=== PATIENT | male | born 1955 | race Caucasian/White ===

== ENCOUNTER 2022-09-10 10:37 | Outpatient (CLI) | payer MEDICARE, SELFPAY | END 2022-09-10 10:38 | disposition home or self-care (01) | PROVIDERS: Visit Provider Family Medicine | DX: Z00.00 Encounter for general adult medical examination without abnormal findings (principal); I10 Essential (primary) hypertension; E78.5 Hyperlipidemia, unspecified; Z11.59 Encounter for screening for other viral diseases; Z12.5 Encounter for screening for malignant neoplasm of prostate | CPT/HCPCS: 80053; 80061; 84153; 86803 ==

== ENCOUNTER 2022-09-26 13:42 | Outpatient (CLI) | payer MEDICARE, SELFPAY | END 2022-09-26 13:43 | disposition home or self-care (01) | LOC: RAD 13:45 | PROVIDERS: PCP Family Medicine; Visit Provider Internal Medicine Cardiovascular Disease | DX: R94.31 Abnormal electrocardiogram [ECG] [EKG] (principal); I34.0 Nonrheumatic mitral (valve) insufficiency | CPT/HCPCS: 93306 ==

== ENCOUNTER 2023-12-12 07:58 | Outpatient (CLI) | payer MEDICARE, SELFPAY | END 2023-12-12 07:59 | disposition home or self-care (01) | LOC: NFLDREF 12-15 03:55 | PROVIDERS: PCP Family Medicine; Referring Provider Family Medicine; Visit Provider Family Medicine | DX: E78.5 Hyperlipidemia, unspecified (principal); I10 Essential (primary) hypertension; Z12.5 Encounter for screening for malignant neoplasm of prostate | CPT/HCPCS: 80053; 80061; G0103 ==

== ENCOUNTER 2023-12-26 10:42 | Outpatient (RCR) | payer MEDICARE, SELFPAY ==
--- NOTE | 2023-12-26 12:45 | PT.OPE ---
[facility] Eval Start: 12/25/23 16:26 Freq: Status: Active Protocol: Document 12/26/23 10:49 LSL (Rec: 12/26/23 12:36 LSL [id number]) E-signed By Kathy Bear PT Physical Therapy Outpatient Evaluation Insurance Information Recert Due Date 03/25/24 Insurance Name Medicare B,Blue Cross/[employer] Medical Diagnosis lateral hip pain, L knee OA Treating Diagnosis impaired ROM, weakness, pain Referring MD Wright Subjective Subjective Pt. reports he went into urgent care 2-3 months ago and he was having pain in his R leg in the upper medial calf and it hurt when he was kneeling and saw ortho and it mellowed out in November. He and his do a lot of walking and began more in springtime and he began having L hip pain and additionally he has L knee OA. After seeing doctor for annual physical and he recommended PT. The pain occurs when I am walking and lasts for a bit but calms down when I sit. I feel it when I golf a lot. His daughter and have both noticed that he limps when he is mowing the lawn. Stiff all over after sitting for a bit. Some difficulty getting up and down for gardening. Winter workout consists of an elliptical. PMH: R LCL and PCL repair about 40 y/a, R PLM 20-25 y/a Pain Comments 0/10 best, 8/10 worst Date of Last Physician Visit 12/20/23 Current Work Status Retired Precautions Weight Bearing Status Full Weight Bearing Objective Range of Motion AROM lumbar flexion 75%, extension 20%, B LF 90% Knee R 0/12/129 L 0/1/140 Strength B LE 5/5, B TFL 4+/5, L hip abduction unable to complete without wanting to compensate 4-/5, R 4+/5, L hip extension 4/5, R 5/5 Trunk - upper abdominals 3-/5, extensors 5/5 Swelling None Palpation point tenderness over R pes anserine bursa, L TFL Balance & Gait SLB R 10 sec, L 13 sec Posture L hemipelvis elevated Assessment Assessment/Impression Pt. is a 68 y/o male who presents with L knee pain with a past diagnosis and imaging of L knee OA, and L glut weakness all of which are contributing to some ITB pain and possibly glut med tendinitis. Additionally he has some point tenderness about the R pes anserine bursa that appears to be residual from an issue earlier this year that has mostly resolved. He will benefit from PT to establish a HEP that focuses on strength and flexibility of his hips and knees. Additionally some manual therapy to decrease muscle tension about if L hip may be incorporated. Primary Functional Limitations walking, stairs Plan of Care Rehabilitation Potential Excellent Physical Therapy Goals SHORT TERM GOALS: (3 weeks) 1. Pt. will be independent in HEP. 2. Pt. will demonstrate an increase in knee extension by 5+ degrees. 3. Pt. will demonstrate an increase in knee flexion by 5+ degrees. SENIOR MOBILE APPLICATION DEVELOPER GOALS: (4+ weeks) 1. 5/5 strength throughout B LE. 2. Pt. able to walk for 4 miles with pain less than 2/10 . Coordination/Communication With Referral Source Treatment Plan/Direct Interventions Ice/Cold/Vasopneumatic,Joint Mobilization,Manual Therapy, Neuromuscular Re-ed,Self-Care/ Home Management,Therapeutic Exercises Frequency/Duration 1x/week 3-6 weeks Patient Will Be Discharged From Therapy Completion of LTG(s),Skills Plateau,Independent w/HEP, Independently Progressing Evaluation Billing Untimed Code Treatment Minutes 35 Complexity Low Certification Information Initial Certification Date 12/26/23 Ending Certification Date 03/25/24 Provider Signature Required Yes Provider Signature Shows Agreement With POC & Medical Necessity Physician NPI Number Write NPI# Here Physician Comment/Change : Physician Signature & Date Requested Please Sign/Date Here
== END 2024-03-10 15:27 | disposition home or self-care (01) ==
PROVIDERS: PCP Family Medicine; Visit Provider Family Medicine
DX: M25.559 Pain in unspecified hip (principal); M17.12 Unilateral primary osteoarthritis, left knee; R53.1 Weakness; Z51.89 Encounter for other specified aftercare
CPT/HCPCS: 97110; 97161

== ENCOUNTER 2025-03-02 08:29 | Outpatient (CLI) | payer MEDICARE, SELFPAY | END 2025-03-02 08:30 | disposition home or self-care (01) | PROVIDERS: PCP Family Medicine; Visit Provider Family Medicine | DX: I10 Essential (primary) hypertension (principal); E78.5 Hyperlipidemia, unspecified; Z12.5 Encounter for screening for malignant neoplasm of prostate | CPT/HCPCS: 80053; 80061; G0103 ==

== ENCOUNTER 2025-03-02 11:48 | Outpatient (CLI) | payer MEDICARE, SELFPAY ==
[2025-03-02 12:12] VITALS: BP 111/71; PULSE 62; RESP 16; TEMP 36.9; O2SAT 96
--- NOTE | 2025-03-02 13:20 | P.PCN_ITS ---
Procedure Note Time Seen by Provider: 12:30 Date Seen: 03/02/25 Provider Contact Time: 13:25 Date of procedure: 03/02/25 Will [facility] bill your pro fee for this procedure?: Yes Procedure: CRYONEUROLYSIS TREATMENT REPORT REFERRING PROVIDER: Rajendra Dunlap TREATMENT PROVIDER: Carlos Menard PREOPERATIVE DIAGNOSIS: Left knee osteoarthritis POSTOPERATIVE DIAGNOSIS: Left knee osteoarthritis? PROCEDURE: Cryoneurolysis of Multiple Sensory Nerves of the Knee ANESTHESIA: Local INDICATIONS: The patient is a very pleasant 69-year-old male patient with primary osteoarthritis involving the left knee who presents today for cryoneurolysis of multiple sensory nerves to the knee for severe knee pain.?Patient medical history was reviewed. The risks, benefits, treatment alternatives, and complications were discussed with the patient, including but not limited to bleeding, infection, nerve or tissue damage.?Informed consent was obtained. ? PRE-TREATMENT MOTOR ASSESSMENT/PAIN SCORE: Patient was able to demonstrate intact gross motor function with plantarflexion, dorsiflexion, adduction, abduction, hip flexion, and extension of the lower extremity.?Pre-treatment pain score of 4 out of 10 in the left knee. DESCRIPTION OF PROCEDURE: After obtaining informed consent, the patient was brought back to the treatment room and positioned supine on the table.?The left lower extremity was prepped with Chlorhexadine.?We began the procedure by performing our procedural pause.?Once this was completed and verified to be accurate, I began the procedure by identifying the nerves with the use of bedside ultrasound.?After the nerves were identified, the skin was marked and, using 1% lidocaine plain, the area of the nerves were anesthetized. ? After the anesthetic was administered, the Smart Tip 2190 cryoneurolysis needle was inserted into the treatment sites using ultrasound guidance.?Treatment was then initiated on the left lower extremity with the following nerves treated: Superior, superior medial, superior lateral, inferior medial genicular nerves. At the termination of the treatment, the cryoneurolysis needle was removed with the patient's skin cleansed and Band-Aids an Idris wrap applied. Patient tolerated the procedure without any incident or concern.? Patient was then instructed to stand, mobilize the joint, and was examined to ensure gross motor skills were intact. COMPLICATIONS: None POST-TREATMENT PAIN SCORE: 0 out of 10. Left knee DISPOSITION: Discharge instructions were given to the patient with education on the post-procedure expectations. Patient was instructed to call the Ortho clinic with any post-procedure concerns or questions.
[2025-03-02 13:28] VITALS: BP 127/80; PULSE 56; RESP 16; O2SAT 96
== END 2025-03-02 13:27 | disposition home or self-care (01) ==
LOC: OP CLINIC 11:48
PROVIDERS: PCP Family Medicine; Visit Provider Nurse Anesthetist, Certified Registered
DX: M17.12 Unilateral primary osteoarthritis, left knee (principal); I10 Essential (primary) hypertension; E78.5 Hyperlipidemia, unspecified; Z12.5 Encounter for screening for malignant neoplasm of prostate
CPT/HCPCS: 64640; 76942; 80053; 80061; C9809; G0103; J2003

== ENCOUNTER 2025-03-12 06:01 | Day surgery (SDC) | payer MEDICARE, SELFPAY ==
[2025-03-12] VITALS (18 sets, daily range): BP systolic 91–111; BP diastolic 53–73; PULSE 53–88; RESP 12–16; TEMP 36.2–37.3; O2SAT 90–97; BMI 30.1
[2025-03-12] MEDS: SODIUM CHLORIDE 0.9 % (FLUSH) 10 ML SYRINGE IVF (06:45)
[2025-03-12] MEDS: LACTATED RINGERS 1000 ML 1,000 ML 100 ML IV ×3 (06:45→11:15)
--- NOTE | 2025-03-12 07:00 | W.PM.H&PU ---
History & Physical Update History & Physical Update H&P Reviewed and patient assessed: No changes noted
[2025-03-12] MEDS: OXYCODONE (CR) 10 MG TAB.ER.12H PO (07:05)
[2025-03-12] MEDS: ACETAMINOPHEN 500 MG TABLET 1000 MG PO (07:05)
[2025-03-12] MEDS: MIDAZOLAM HCL 1 MG/ML inj IVP (07:11)
[2025-03-12] MEDS: TRANEXAMIC ACID 100 MG/ML INJ 1000 MG IV (07:33)
--- NOTE | 2025-03-12 08:00 | SUR.PREOP ---
TIME?OUT:?0710 PT/RN/MDA?VERIFICATION?OF?SURGICAL?SITE,?PROCEDURE,?AND?CONSENT OBTAINED?PRIOR?TO?INVASIVE?PROCEDURE.
--- NOTE | 2025-03-12 08:30 | P.NB_ITS ---
Nerve Block Nerve Block Time Seen by Provider: 07:00 Date Seen: 03/12/25 Type of block requested by surgeon for post-operative analgesia: adductor canal Side: left Time out performed: Yes Verification of patient name: Yes Verification of date of : Yes Site marking: site marked Name of person performing procedure: Elbert Continuous monitoring Was continuous monitoring of O2 sat, B/P, hand grinder, recorded every 15 minutes?: Yes Procedure Checklist: sterile prep, needles and gloves Ultrasound guided. Images saved: Yes Medications given in 5ml increments after negative aspiration: Ropivicaine %: 0.5 mL: 20 Needle gauge: 20 Precedex (mcg): 25 Patient tolerated procedure well: Yes Block Charges Block Charge (with Pro Fee): Femoral Nerve Use of Ultrasound Machine for Block: Yes- US Guidance/pain block
--- NOTE | 2025-03-12 08:32 | P.NB_ITS ---
Nerve Block Nerve Block Time Seen by Provider: 07:00 Date Seen: 03/12/25 Type of block requested by surgeon for post-operative analgesia: geniculars Side: left Time out performed: Yes Verification of patient name: Yes Verification of date of : Yes Site marking: site marked Name of person performing procedure: Elbert Continuous monitoring Was continuous monitoring of O2 sat, B/P, manager monitoring, recorded every 15 minutes?: Yes Procedure Checklist: sterile prep, needles and gloves Ultrasound guided. Images saved: No Medications given in 5ml increments after negative aspiration: Ropivicaine %: 0.5 mL: 12 Needle gauge: 22 Precedex (mcg): 25 Patient tolerated procedure well: Yes Block Charges Block Charge (with Pro Fee): Genicular Nerve Block Use of Ultrasound Machine for Block: No
--- NOTE | 2025-03-12 08:51 | P.ORPRC_ITS ---
Procedure Note Date of procedure: 03/12/25 Procedure: PREOPERATIVE DIAGNOSIS: 1. Left knee osteoarthritis, primary, severe POSTOPERATIVE DIAGNOSIS: 1. Left knee osteoarthritis, primary, severe PROCEDURE: 1. Left total knee arthroplasty, Press-Fit Rotating platform - no tourniquet SURGEON: Rajendra Dunlap MD. REIMBURSEMENT ANALYST: PATRICK Nicholson - Of note, a skilled aquatics assistant department head was critical for this case to aid in patient positioning, tissue retraction, limb manipulation/positioning, and closure. ANESTHESIA: Spinal anesthetic EBL: 100 mL IMPLANTS: DePuy J&J uncemented TKA - Attune PS femur size 7 Size 7 tibia RP base plate 5 RP poly spacer 38 mm Affixium patella TOURNIQUET: None COMPLICATIONS: None evident INDICATIONS: The patient is a pleasant 69-year-old male who has experienced severe left knee pain and difficulty bearing weight. Workup included x-rays which revealed severe osteoarthrosis in the knee. Given the deformity, the dysfunction, and the pain, as well as the failure of nonoperative management, recommendation was made for surgery. FINDINGS: Full-thickness chondral loss diffusely throughout the lateral compartment with degenerative lateral meniscus pathology. To lesser degree chondromalacia of the patellofemoral and medial compartments. Large effusion upon entering the joint. DESCRIPTION OF PROCEDURE: Following a thorough discussion of risks, benefits, and alternatives consent was obtained and the left knee was marked. The patient was brought to the operating room and placed supine on the operating table. Induction of anesthesia was undertaken. 2 g IV Ancef and 1 g tranexamic acid was administered within 1 hr of incision preoperatively. Proper time-out was performed identifying proper patient, site, procedure. The operative extremity was prepped and draped in the appropriate sterile fashion using ChloraPrep after the patient was positioned supine with all bony prominences well padded. A longitudinal, anterior, midline skin incision was made starting approximately 3cm proximal to the superior pole of the patella and advanced distal to the tibial tubercle. A sub vastus approach was utilized. After mobilizing the patella, retropatellar fatpad was resected and the synovium in the suprapatellar pouch excised to visualize the anterior femoral cortex. Patellar prep showed initial measurement/thickness of 28 mm. It was resected back to approximately 17 mm. The patella prep was completed with drilling and a trial placed. Femoral preparation was performed via an intramedullary guide. Step drill allowed access into the femoral canal. The distal cutting guide was placed with 6 ? of valgus and 11 mm cut on the distal femur initially, but increased to 13 mm total. Femur was sized using a anterior referencing guide as well as referencing trans epicondylar axis and Whitesides line in 5? of external rotation. This found have a best fit with the sizing noted above. The 4 in 1 cutting block was then placed, and the distal femur shaped accordingly. The box cut was then created and the trial implant inserted to confirm appropriate fit. We turned our attention to the proximal tibia. Extramedullary guide was utilized for cutting with the goal of being 90 degree cut from the mechanical axis of the tibia in the varus/valgus plane utilizing tibial crest as the primary alignment. Initially a 2 mm resection was performed from the medial tibial plateau. Ultimately, balancing was achieved in both flexion and extension in both varus and valgus. The knee was able to achieve full extension comfortably. It was sized to be a best fit with as noted above. At this stage, trial implants were removed, the tibia and femoral and patellar components were opened and inserted. The real poly spacer was opened and inserted. A 3 min Betadine soak performed. Finally, a final irrigation round with normal saline was performed. Closure performed with 0 PDS and #0 Stratafix for the quad tendon/retinaculum. 2-0 Vicryl/Stratafix for the subcutaneous and 4-0 Monocryl for subcuticular closure. Dressings were applied and the patient was awoken from anesthesia and transferred the PACU in stable condition. A skilled aquatics assistant department head was critical for this case to aid in patient positioning, tissue retraction, bone exposure, limb manipulation/positioning, patient safety, and closure. PLAN: 1. Weight bear as tolerated operative extremity. 2. 23 hr perioperative antibiotics. 3. Ice. 4. PT/OT consults for ambulation assistance/mobility education. 5. Social work consult for discharge planning. 6. DVT prophylaxis with at SCDs, and aspirin twice daily.
--- NOTE | 2025-03-12 09:12 | P.ANES_ITS ---
Anesthesia Charges Start Date/Time Anesthesia Start Date: 03/12/25 Anesthesia Start Time: 07:19 Stop Date/Time Anesthesia Stop Date: 03/12/25 Anesthesia Stop Time: 09:14 Coding CPT Codes CPT Codes: ANESTH KNEE ARTHROPLASTY - 43723 ([id number]) P2 - PATIENT W/MILD SYST DISEASE, QZ - DUCK FARMER SVC W/O ASSEMBLER SKYLIGHTS BY
--- NOTE | 2025-03-12 09:12 | W.ANESCHARGE ---
Anesthesia Charges Start Date/Time Anesthesia Start Date: 03/12/25 Anesthesia Start Time: 07:19 Stop Date/Time Anesthesia Stop Date: 03/12/25 Anesthesia Stop Time: 09:14 Coding CPT Codes CPT Codes: ANESTH KNEE ARTHROPLASTY - 92059 ([id number]) P2 - PATIENT W/MILD SYST DISEASE, QZ - PORCELAIN WAXER SVC W/O HARNESS REPAIRER BY
--- NOTE | 2025-03-12 09:19 | CRLHL7_ITS ---
For Patients: As a result of the Cures Act, medical imaging exams and procedure reports are released immediately into your electronic medical record. You may view this report before your referring provider. If you have questions, please contact your health care provider. INDICATION: Left knee arthroplasty. Follow-up. TECHNIQUE: Two portable postoperative images of the left knee. COMPARISON: Pre-surgical images July 07, 2024. FINDINGS: New left total knee arthroplasty. Patellar resurfacing. The components are adequately aligned and well seated. Air within the soft tissues and joint space related to the surgery. IMPRESSION: New postsurgical change from a left knee arthroplasty. Adequate alignment. Dictated by Juan Martinez MD @ 03/12/2025 4:17:22 PM (Electronically Signed)
--- NOTE | 2025-03-12 10:04 | SUR.OPER ---
PATIENT QUESTIONS ANSWERED SATISFACTORILY PREOPERATIVELY.? PATIENT BROUGHT TO OR #3 PER CART AFTER ADMINISTRATION OF A BLOCK.? Patient positioned supine on OR #3 bed.? The perioperative?team supported arms bilaterally on arm boards.? Final approval of positioning by surgeon.?
[2025-03-12] MEDS: IBUPROFEN 200 MG TABLET 600 MG PO (11:15)
== END 2025-03-12 13:15 | disposition home or self-care (01) ==
LOC: OR 06:03
PROVIDERS: PCP Family Medicine; Visit Provider Orthopaedic Surgery Sports Medicine
PROC: (CPT 27447; principal; 2025-03-12 07:15)
DX: M17.12 Unilateral primary osteoarthritis, left knee (principal); G89.18 Other acute postprocedural pain; E66.9 Obesity, unspecified; Z68.30 Body mass index [BMI] 30.0-30.9, adult; G47.33 Obstructive sleep apnea (adult) (pediatric); Z79.82 Long term (current) use of aspirin; I10 Essential (primary) hypertension; E78.5 Hyperlipidemia, unspecified
CPT/HCPCS: 27447; 01402; 64447; 64454; 73560; 76942; 97110; 97116; 97161; 97530; A9270; C1776; J0690; J1100; J2250; J2371; J2405; J2704; J2795; J3010; J7120

== ENCOUNTER 2025-04-27 08:05 | Outpatient (CLI) | payer MEDICARE, SELFPAY ==
[2025-04-27] MEDS: REGADENOSON 0.4 MG/5 ML SYRINGE IVP (09:19)
[2025-04-27 09:35] VITALS: BP 128/82; PULSE 68; RESP 16; O2SAT 96
--- NOTE | 2025-04-27 10:28 | W.PM.STED ---
Stress Test Note Date Date Seen: 04/27/25 Date of test: 04/27/25 Providers Primary care provider: Fei Wright Stress test physician: Terrance Long Stress Test Note Stress test ordered: Lexiscan Indication for test: Chest pain Stress test medicine: Lexiscan Results discussion: This very nice patient presents for the above test, after discussion the risks benefits and side effects of the test, patient would like to continue. Cardiac stress test medical history form is reviewed entirely. Pretest EKG shows normal sinus rhythm with a ventricular rate of 70. No acute ST wave changes are noted. He does have a 1st degree AV block. Standard Lexiscan protocol is used over a 5 minute period, he did the walking protocol, achieved a metabolic equivalent of 1.6 months with a maximum heart rate of 110, there were no complications, he did not develop any subjective symptoms of chest pain shortness of breath or any other anginal equivalents, review of the tracing showed no change from his baseline rhythm, or ST wave changes indicative of ischemia Impression: negative electrographic portion of Lexiscan, negative subjectively Follow up suggested: await nuclear medicine interpretation of this, patient recovered normally there were no complications, clinical correlation with this will be needed by referring physician. Patient left this testing facility in good condition
== END 2025-04-27 08:06 | disposition home or self-care (01) ==
LOC: STRESS 08:07
PROVIDERS: PCP Family Medicine; Visit Provider Family Medicine
DX: R07.9 Chest pain, unspecified (principal); I10 Essential (primary) hypertension; Z82.49 Family history of ischemic heart disease and other diseases of the circulatory system
CPT/HCPCS: 78452; 93016; 93017; A9500; J2785